=== PATIENT | male | born 1940 | race Caucasian/White ===

== ENCOUNTER → 2018-05-25 | Day surgery (SDC) | payer OTHER ==
[2018-05-24 11:55] LABS: BASOPHILS # (AUTO) 0.1 (0.0-0.1); BASOPHILS % 0.5 % (0.0-1.0); EOSINOPHILS # (AUTO) 0.4 (0.0-0.4); EOSINOPHILS % 3.7 % (0.0-6.0); HEMATOCRIT 46.2 % (38.2-49.6); HEMOGLOBIN 15.1 g/dL (14.0-18.0); LYMPHOCYTES # (AUTO) 2.3 (1.0-3.2); LYMPHOCYTES % 24.3 % (18.0-39.1); MEAN CORPUSCULAR HEMOGLOBIN 29.8 pg (28-32); MEAN CORPUSCULAR HGB CONC 32.7 g/dL (31-35); MEAN CORPUSCULAR VOLUME 91.3 fL (81-99); MONOCYTES # (AUTO) 0.8 (0.2-0.8); MONOCYTES % 8.7 % (4.4-11.3); NEUTROPHILS # (AUTO) 5.9 (2.1-6.9); NEUTROPHILS % 62.5 % (38.7-80.0); PLATELET COUNT 268 x10e3/uL (140-360); RED BLOOD COUNT 5.06 x10e6/uL (4.3-5.7)
[2018-05-24 12:18] LABS: INR 0.87; PROTHROMBIN TIME 12.7 seconds (11.9-14.5)
[2018-05-24 12:23] LABS: ANION GAP 12.8 mmol/L (8-16); BLOOD UREA NITROGEN 17 mg/dL (7-26); BUN/CREATININE RATIO 17 (6-25); CALCIUM 9.9 mg/dL (8.4-10.2); CARBON DIOXIDE 29 mmol/L (22-29); CHLORIDE 103 mmol/L (98-107); CREATININE, SERUM 0.98 mg/dL (0.72-1.25); EST GLOMERULAR FILTRATION RATE > 60 ML/MIN (60-); GLUCOSE 108 mg/dL (74-118); POTASSIUM 4.8 mmol/L (3.5-5.1); SODIUM 140 mmol/L (136-145)
[2018-05-25] VITALS (19 sets, daily range): BP systolic 124–180; BP diastolic 57–97
[~2018-05-25] VITALS: Ht 185.4 cm; Wt 93.4 kg
[~2018-05-25] MED LIST: ALLOPURINOL300 MG PO; BACITRACIN 50,000 UNIT VIAL ONE; CEFAZOLIN SOD 1 GM VIAL ONE; FENTANYL CITRATE/PF 100MCG/2 ML INJ ONE; FUROSEMIDE40 MG PO; LIDOCAINE HCL 1% LOCAL INJ 20 ML VIAL ONE; MIDAZOLAM HCL 2 MG/2 ML VIAL ONE; POTASSIUM CHLO20 ME1 PO; SODIUM CHLORIDE 0.9% 100 ML 100 ML ONE; SODIUM CHLORIDE 0.9% 1000ML 1,000 ML ONE; SODIUM CHLORIDE 0.9% 500ML 1,000 ML ONE
--- NOTE | 2018-05-25 09:00 | Operative Report ---
DATE OF PROCEDURE: PROCEDURE: Single lead permanent pacemaker placement. INDICATION: Atrial fibrillation and sick sinus syndrome. COMPLICATIONS: None. ANESTHESIA: Versed, fentanyl, and lidocaine. TECHNIQUE: The venogram was done from the left arm. The left subclavicular area was draped and prepped in the usual manner. The area was anesthetized with lidocaine. A #10 blade scalpel was used to open the pacemaker pocket. The pocket was dissected out with Metzenbaum scissors. A 16-gauge needle was used to cannulate the left subclavian vein without difficulty. A guidewire was positioned in the left subclavian vein. A 7-Spanish sheath was then passed over the guidewire. A 57 cm tined lead was then positioned at the apex of the right ventricle. The R-waves were measured at 7.3 millivolts. The threshold was 0.4 volts with a pulse width of 0.5 milliseconds, impedance 316 ohms. The lead was then anchored into the pocket with 2-0 silk. The lead was then attached to a HubHub generator, which was anchored into the pocket with 2-0 silk. The pocket was irrigated with antibiotic solution. The pocket was then closed with 2-0 Vicryl for the subcutaneous closure and 2-0 Vicryl for the subcuticular closure. There were no complications. CONCLUSION: Successful insertion of single-chamber permanent pacemaker. Job#: [id number]
--- NOTE | 2018-05-25 09:23 | Diagnostic Imaging Report ---
PROCEDURE: CHEST SINGLE (PORTABLE) COMPARISON: 05/24/2018. INDICATIONS: PACEMAKER PLACEMENT FINDINGS: Interval placement of a left subclavian approach implantable cardiac device. Body projects over the left lateral chest wall. Lead projects over the expected region of the right ventricle. No pneumothorax. Lungs remain well-inflated. Symmetric nodular opacities project over the lung bases compatible with nipple shadows. No pleural effusion. Stable cardiomediastinal contour with tortuosity and atherosclerotic calcification of the thoracic aorta. Right hilar prominence is likely a consequence of leftward patient rotation. No acute osseous abnormality. CONCLUSION: Interval placement of left subclavian approach implantable cardiac device, positioned as above. No pneumothorax. Dictated by: Yousif Waggoner M.D. on 05/25/2018 at 9:31 Electronically approved by: Yousif Waggoner M.D. on 05/25/2018 at 9:31
--- NOTE | 2018-05-25 16:25 | Diagnostic Imaging Report ---
EXAMINATION: PA and lateral views of the chest. COMPARISON: None CLINICAL HISTORY: Preop for pacemaker DISCUSSION: The lungs are well-inflated. No focal airspace consolidation, pleural effusion, or pneumothorax. Borderline enlargement of the cardiac silhouette with tortuosity and atherosclerotic calcification of the thoracic aorta. No pulmonary edema. Age-indeterminate mild anterior compression deformity of T10. Otherwise intact regional skeletal structures. IMPRESSION: No acute cardiopulmonary abnormality. Borderline enlargement of the cardiac silhouette without vascular decompensation. Age-indeterminate mild anterior compression deformity of T10. Correlate for point tenderness. Signed by: Dr. Yousif Waggoner M.D. on 05/25/2018 4:22 PM
== END | disposition home or self-care (01) ==
LOC: CATH LAB 06:07 → EDSTATUS 07:30
PROVIDERS: ATTEND Internal Medicine Cardiovascular Disease
DX: I48.2 Chronic atrial fibrillation (principal); I49.5 Sick sinus syndrome; I25.10 Atherosclerotic heart disease of native coronary artery without angina pectoris; I10 Essential (primary) hypertension; J44.9 Chronic obstructive pulmonary disease, unspecified; M10.9 Gout, unspecified; Z01.810 Encounter for preprocedural cardiovascular examination; Z01.812 Encounter for preprocedural laboratory examination; Z01.818 Encounter for other preprocedural examination; Z79.82 Long term (current) use of aspirin; Z68.41 Body mass index [BMI] 40.0-44.9, adult
CPT/HCPCS: 33207; 36415; 71045; 71046; 75820; 80048; 85025; 85610; 93005; C1769; C1786; C1898; J0690; J2001; J2250; J7030; J7040